=== PATIENT | female | born 1950 | race Caucasian/White ===

== ENCOUNTER 2022-08-30 10:26 | Emergency (ER) | payer MEDICARE, SELFPAY ==
--- NOTE | ~2022-08-30 | US_ITS ---
EXAMINATION: US VENOUS ULTRASOUND WITH DOPPLER LOWER EXTREMITY, RIGHT CLINICAL INFORMATION: Right lower extremity pain. COMPARISON: None available. TECHNIQUE: Ultrasound of the deep veins is performed from the hip to the calf with compression sonography and color and pulse Doppler assessment. Spectral analysis with color-flow imaging is performed. FINDINGS: There is normal venous compression and respiratory variation and augmented flow. The visualized common femoral vein, superficial femoral vein, profunda femoral vein, popliteal vein, and the trifurcation region shows no evidence of deep venous thrombosis. 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 The peroneal vein is not visualized. There is no significant popliteal fossa cyst. US/US venous duplex LE RT IMPRESSION: No DVT demonstrated in the right lower extremity.
--- NOTE | ~2022-08-30 | XR_ITS ---
EXAMINATION: XR HIP, RIGHT CLINICAL INFORMATION: Right groin pain. COMPARISON: None available. TECHNIQUE: Two views of the right hip. FINDINGS: There is no acute fracture or dislocation. The joint spaces are unremarkable. The bony pelvis is intact. Transitional L5-S1.. XR/XR hip RT w PEL1V IMPRESSION: Unremarkable right hip
[2022-08-30 10:29] VITALS: BP 126/78; PULSE 63; RESP 18; TEMP 36.6; O2SAT 97; BMI 32.0
--- NOTE | 2022-08-30 12:41 | ED.GENADULT ---
HPI - General Adult General Chief complaint: Extremity Injury, Lower Stated complaint: sent from urgent care Time Seen by Provider: 08/30/22 11:21 Source: patient Mode of arrival: ambulatory Limitations: no limitations History of Present Illness HPI narrative: patient is a 72 old female presents emergency department for evaluation of left hip/groin pain. Atraumatic pain which has been present for 2-3 weeks. The pain is described as sharp and aching in nature felt with particular movements of the extremity. She went to urgent care today for evaluation and was advised to come to the emergency department to rule out DVT. Of note she is on Eliquis for atrial fibrillation, denies any history of DVT / PE. denies numbness or tingling to the extremity, denies cold sensation. Denies any genitourinary symptoms. Related Data Previous Rx's Medication Instructions Recorded diclofenac sodium 3 % topical gel 1 appl topical BID #100 grams 08/30/22 Allergies Allergy/AdvReac Type Severity Reaction Status Date / Time No Known Allergies Allergy Verified 08/30/22 10:28 Review of Systems Review of Systems: Constitutional: No weight loss, fever, chills, weakness or fatigue. Skin: No rash or itching. Cardiovascular: No chest pain, chest pressure or chest discomfort. No palpitations or pedal edema. Respiratory: No shortness of breath, cough or sputum production. Gastrointestinal: No nausea, vomiting or diarrhea. No abdominal pain Genitourinary: No burning micturition. No urinary frequency or incontinence. Musculoskeletal: As per HPI Psychiatric: No depression or anxiety. Yes all other systems are reviewed and are negative [facility] Past Medical History Attestation statement: The following information was validated with the patient. Source: old records reviewed Social History Social History Advance Directives: No Advance Directives Information Provided: Yes Physical Exam ED Vital Signs: Vital Signs - 24 hr 08/30/22 10:29 Temperature 97.8 F Pulse Rate 63 Respiratory Rate 18 Blood Pressure 126/78 Pulse Oximetry 97 Oxygen Delivery Method Room Air BMI result Body Mass Index 32.0 Appearance: Alert.?Oriented to person, place and time. No acute distress.?Normal affect. Eyes: Pupils equal, round and reactive to light.? ENT: Pharynx normal.?? Neck: Normal inspection.? Neck supple.?? CVS: Heart sounds normal. Normal heart rate and rhythm.? Pulses normal.?? Respiratory: No respiratory distress.? Lung sounds clear to auscultation bilaterally?? Abdomen/ pelvis: Soft and non-tender. Normoactive bowel sounds. No pulsatile mass.?? no palpable inguinal mass Skin: Skin warm and dry.? Normal skin color.? Extremities: No lower extremity edema.? No calf ttp Neuro: Moves all extremities spontaneously. Sensation intact bilaterally. No focal neuro deficits. Ambulates with normal steady gait. Medical Decision Making Medical Decision Making MDM Narrative: patient is a 72 old female who presents emergency department for evaluation of left hip/ groin pain as per HPI. Physical examination is benign, no obvious deformity, no CVA tenderness or lumbar paraspinal muscle tenderness. No erythema, warmth, lesions or rashes. No inguinal masses noted. XR imaging reveals no acute fracture dislocation of the hip/ pelvis. Ultrasound imaging does not reveal evidence of DVT. discussed conservative treatment including acetaminophen, ice/ heat, topical diclofenac, outpatient follow-up with primary care provider and possible physical therapy evaluation. Reviewed worrisome signs and symptoms that would warrant re-evaluation in the emergency department. All questions answered. Stable for discharge. Differential Diagnosis Differential Diagnoses: The differential diagnosis associated with the presentation includes ( Bursitis, fracture, dislocation, urinary tract infection, DVT) Independent Interpretation I performed an independent interpretation of an: Plain X-Ray ( I personally interpreted XR imaging of the left hip and pelvis and agree with radiologist impression no acute fracture dislocation.) Radiology Impression Discussion of test interpretation with radiology: I have reviewed the radiologist's reading. Radiologist Impression: XR/XR hip RT w PEL1V IMPRESSION: Unremarkable right hip ? US/US venous duplex LE RT IMPRESSION: No DVT demonstrated in the right lower extremity. ? Independent Historian Clinical information obtained from an independent historian. History obtained from or confirmed by: Spouse ( Patient's significant other is present at bedside who confirms history) Prescription Management I considered prescription management with: Pain Medication Discharge Plan Discharge Clinical Impression: Arthralgia Patient Disposition: Home, Self-Care Instructions: Arthralgia (ED) Additional Instructions: As discussed your ultrasound today does not reveal any blood clot, and the x-ray was normal. You can take Tylenol 500 mg, 2 tablets (1,000mg) every 4-6 hours as needed for pain, but not to exceed 3 doses daily (3,000mg).? apply ice/heat to the area for 10-15 minutes 3-4 times daily. Apply topical diclofenac as prescribed follow-up with her primary care provider for any persistent symptoms. Return back to emergency department any new or worsening symptoms or concerns. Prescriptions: New diclofenac sodium 3 % gel 1 appl topical BID Qty: 100 0RF Referrals: Mp Vasques MD [Primary Care Provider] -
== END 2022-08-30 12:54 | disposition home or self-care (01) ==
PROVIDERS: Emergency Provider Student in an Organized Health Care Education/Training Program; PCP Internal Medicine
DX: M79.604 Pain in right leg (principal); M25.551 Pain in right hip; I48.91 Unspecified atrial fibrillation; Z79.01 Long term (current) use of anticoagulants
CPT/HCPCS: 73502; 93971; 99283